=== PATIENT | male | born 1955 | race Asian ===

== ENCOUNTER → 2019-09-13 | Outpatient (CLI) | payer OTHER ==
[~2019-09-13] MED LIST: ALBU90OI INH; ASPI81EC PO; FLUSAL2505 IH; LISI20 PO; METHYLPREDNISONE
[2019-09-14 14:02] LABS: Stool Occult Bld Immuno 1 Positive (NEGATIVE)
== END ==
LOC: LAB 15:19 → LAB SHORT 15:19
PROVIDERS: Nurse Practitioner Family
DX: Z12.11 Encounter for screening for malignant neoplasm of colon (principal)
CPT/HCPCS: G0328

== ENCOUNTER 2019-11-07 08:05 | Day surgery (SDC) | payer OTHER ==
[~2019-11-07] VITALS: Ht 162.6 cm; Wt 111.0 kg
[~2019-11-07 08:05] MED LIST changes: +HYDCHL25 PO; +METF500 PO; +TAMS.4ER PO; +ZOCOR20 MG PO
--- NOTE | 2019-11-07 09:19 | NUR ---
Ambulatory in Day Surgery. Patient states colon prep results clear. History, Chart, Medications and Allergies reviewed before start of procedure. Lungs clear T/O to Auscultation. Patient confirms NPO status and agrees with scheduled surgery. Patient States Post-Procedure ride home has been arranged.
--- NOTE | 2019-11-07 09:25 | NUR ---
11/07/19 0925 Nicholas Gongora History, Chart, Medications and Allergies reviewed before start of procedure.MONITOR INTACT WITH CONTINUOUS PULSE OXIMETRY AND INTERMITTENT BP.3-LEAD EKG REVIEWED WITH PHYSICIAN PRIOR TO START OF PROCEDURE.O2 VIA N/C INTACT THROUGHOUT SEDATION/PROCEDURE.
--- NOTE | 2019-11-07 10:21 | NUR ---
Patient up to Ambulate independently. Gait steady. Discharge instructions reviewed with patient. Patient verbalizes understanding. Copy given to patient to take home. Lungs clear T/O to Auscultation. Patient States Post-Procedure ride home has been arranged. Discharged via wheelchair to private car for ride home.
== END 2019-11-07 22:45 | disposition home or self-care (01) ==
LOC: ORSCMMR 08:05 → ORD 09:00 → ORSCMMR 09:00
PROVIDERS: Internal Medicine Gastroenterology
PROC: 0DBN8ZX Excision of Sigmoid Colon, Via Natural or Artificial Opening Endoscopic, Diagnostic (ICD-10-PCS; principal; 2019-11-07 09:00)
DX: K62.5 Hemorrhage of anus and rectum (principal); K63.5 Polyp of colon; K64.8 Other hemorrhoids; K62.4 Stenosis of anus and rectum; E11.9 Type 2 diabetes mellitus without complications; E78.00 Pure hypercholesterolemia, unspecified; J45.909 Unspecified asthma, uncomplicated; E66.9 Obesity, unspecified; Z68.41 Body mass index [BMI] 40.0-44.9, adult; Z79.82 Long term (current) use of aspirin; Z79.84 Long term (current) use of oral hypoglycemic drugs; Z79.899 Other long term (current) drug therapy
CPT/HCPCS: 82947; 88305; J2250; J3010; J7120

== ENCOUNTER → 2021-05-19 | Outpatient (CLI) | payer OTHER | END | disposition home or self-care (01) | LOC: LAB 18:05 → LAB SHORT 18:05 | DX: L08.9 Local infection of the skin and subcutaneous tissue, unspecified (principal) | CPT/HCPCS: 87070; 87075; 87077; 87186; 87205 ==

== ENCOUNTER 2021-10-28 09:01 | Day surgery (SDC) | payer OTHER ==
[~2021-10-28] VITALS: Ht 162.6 cm; Wt 113.0 kg
[2021-10-28] MEDS ORDERED: CLOP75 PO (09:36)
[2021-10-28] MEDS ORDERED: IPRAT-ALBUT 0.5-3 ML INH (09:36)
[2021-10-28] MEDS ORDERED: Loratadine10 MG PO (09:38)
[2021-10-28] MEDS ORDERED: NAPR500EC PO (09:39)
[2021-10-28] MEDS ORDERED: METO25ER PO (09:39)
[2021-10-28] MEDS ORDERED: SYMBICORT 16010.2 GM INH (09:40)
[2021-10-28] MEDS ORDERED: SOLI5 (09:40)
[2021-10-28] MEDS ORDERED: SPIR25 PO (09:40)
--- NOTE | 2021-10-28 11:34 | NUR ---
PT BACK FROM [employer] P[facility]. PT SITTING UP IN RECLINER AOX4. DENIES ANY PAIN. PT WITH RRAD ACCESS, TR BAND IN PLACE WITH 13mL AIR IN BAND. VSS. WILL CONTINUE TO MONITOR.
--- NOTE | 2021-10-28 13:30 | NUR ---
13CC AIR REMOVED FROM TR BAND. -BLEEDING OR SWELLING. PT UP TO BATHROOM /C DIFFICULTY.
--- NOTE | 2021-10-28 14:25 | NUR ---
R WRIST TR BAND REMOVED. -BLEEDING OR SWELLING. R WRIST SPLINT APPLIED. PT VERBALIZED UNDERSTANDING OF WRITTEN AND VERBAL D/C INST. IV REMOVED. PT TAKEN OUT OF THE [facility]RT [facility]ENTER VIA W/C.
== END 2021-10-28 14:20 | disposition home or self-care (01) ==
LOC: MHTC 09:01
DX: I25.110 Atherosclerotic heart disease of native coronary artery with unstable angina pectoris (principal)
CPT/HCPCS: 76937; 93458; 99152; 99153; C1769; C1887; C1894; J1644; J2250; J3010; J7030; J7050; Q9967

== ENCOUNTER → 2022-07-05 | Outpatient (CLI) | payer OTHER ==
[~2022-07-05] MED LIST changes: +CLOP75 PO; +IPRAT-ALBUT 0.5-3 ML INH; +Loratadine10 MG PO; +METO25ER PO; +NAPR500EC PO; +SOLI5; +SPIR25 PO; +SYMBICORT 16010.2 GM INH
== END | disposition home or self-care (01) ==
LOC: LAB SHORT 16:47 → LAB 16:47
DX: R91.8 Other nonspecific abnormal finding of lung field (principal)
CPT/HCPCS: 87102

== ENCOUNTER → 2024-03-26 | Outpatient (CLI) | payer OTHER | END | disposition home or self-care (01) | LOC: LAB 15:37 → LAB SHORT 15:37 | DX: M79.673 Pain in unspecified foot (principal) | CPT/HCPCS: 84550 ==

== ENCOUNTER 2024-10-09 20:35 | Emergency (ER) | payer OTHER ==
[~2024-10-09] VITALS: Ht 162.6 cm; Wt 106.1 kg
[~2024-10-09 20:35] MED LIST changes: -Betamethasone V60 ML TOP; -CEPH500 PO; -DOXY100 PO; -HYDPAM50 PO; -TREXALL7.5 MG PO
[2024-10-09 23:25] LABS: BASOPHILS ABSOLUTE AUTO 0.14 K/mm3 (0.00-0.23); BASOPHILS PERCENT AUTO 1 % (0-2); EOSINOPHILS ABSOLUTE AUTO 0.23 K/mm3 (0.00-0.68); EOSINOPHILS PERCENT AUTO 2 % (0-6); Hematocrit 42.4 % (37.0-53.0); IMMATURE GRAN ABSOLUTE AUTO 0.24 K/mm3 (0.00-0.10); IMMATURE GRAN PERCENT AUTO 2 % (0-1); LYMPHOCYTES ABSOLUTE AUTO 1.85 K/mm3 (0.84-5.20); LYMPHOCYTES PERCENT AUTO 13 % (21-46); MONOCYTES ABSOLUTE AUTO 2.93 K/mm3 (0.16-1.47); MONOCYTES PERCENT AUTO 21 % (4-13); Mean Corpuscular HGB 32.3 pg (26.0-34.0); Mean Corpuscular Volume 98 fL (80-100); Mean Platelet Volume 8.2 fL (9.1-12.4); NEUTROPHILS ABSOLUTE AUTO 8.53 K/mm3 (1.96-9.15); NEUTROPHILS PERCENT AUTO 61 % (41-73); Platelet Count 348 K/mm3 (150-400); RDW Coefficient Variation 13.5 % (11.7-14.2); RDW Standard Deviation 48.8 fL (35.1-46.3); Red Blood Cell Count 4.34 M/mm3 (4.30-5.90); White Blood Cell Count 13.92 K/mm3 (4.00-11.30)
[2024-10-09 23:38] LABS: Albumin, Blood 3.1 g/dL (3.4-5.0); Albumin/Globulin Ratio 0.7 (0.8-1.8); Bilirubin, Total 1.8 mg/dL (0.1-1.0); Bun/Creatinine Ratio 13.7 (12.0-20.0); Calcium, Blood 9.2 mg/dL (8.5-10.1); Creatinine, Blood 1.82 mg/dL (0.60-1.20); Globulin, Blood 4.5 g/dL (2.2-4.0); Total Protein, Blood 7.6 g/dL (6.4-8.2)
[2024-10-09] MEDS ORDERED: NS 1,000 ML IV SCH (23:55)
[2024-10-10] MEDS ORDERED: CefTRIAXone Sodium 1,000 MG in NS 100 ML IV ONE (00:25)
[2024-10-10] MEDS ORDERED: Albuterol 2.5 MG/3 ML VIAL INH SCH (00:25)
[2024-10-10] MEDS ORDERED: Methotrexate Sod 2.5 MG Tab PO ONE (00:30)
[2024-10-10] MEDS ORDERED: TREXALL7.5 MG PO (00:52)
[2024-10-10] MEDS ORDERED: Betamethasone V60 ML TOP (00:52)
[2024-10-10] MEDS ORDERED: CEPH500 PO (00:52)
[2024-10-10] MEDS ORDERED: DOXY100 PO (00:52)
[2024-10-10] MEDS ORDERED: HYDPAM50 PO (00:58)
[2024-10-10 02:15] VITALS: BP 130/72
== END 2024-10-10 02:33 | disposition home or self-care (01) ==
LOC: ER 20:35
PROVIDERS: Student in an Organized Health Care Education/Training Program
DX: L40.8 Other psoriasis (principal); I10 Essential (primary) hypertension; J45.909 Unspecified asthma, uncomplicated; E11.9 Type 2 diabetes mellitus without complications; Z91.010 Allergy to peanuts; Z79.84 Long term (current) use of oral hypoglycemic drugs; Z79.899 Other long term (current) drug therapy
CPT/HCPCS: 80053; 85025; 94644; 94664; 96365; 99282-25; J0696; J7030; J8610

== ENCOUNTER → 2024-10-09 | Outpatient (CLI) | payer OTHER ==
[~2024-10-09] MED LIST changes: +Betamethasone V60 ML TOP; +CEPH500 PO; +DOXY100 PO; +HYDPAM50 PO; +TREXALL7.5 MG PO
== END | disposition home or self-care (01) ==
LOC: LAB 18:04 → LAB SHORT 18:04
DX: Z12.83 Encounter for screening for malignant neoplasm of skin (principal); L03.114 Cellulitis of left upper limb; L03.113 Cellulitis of right upper limb; L03.221 Cellulitis of neck; L03.313 Cellulitis of chest wall; L03.311 Cellulitis of abdominal wall; L03.115 Cellulitis of right lower limb; L03.116 Cellulitis of left lower limb; L03.312 Cellulitis of back [any part except buttock and flank]; L03.317 Cellulitis of buttock; L03.818 Cellulitis of other sites; L40.8 Other psoriasis
CPT/HCPCS: 87070; 87077; 87186; 87205